=== PATIENT | female | born 1960 | race African-American/Black ===

== ENCOUNTER 2017-01-19 12:42 | Emergency (ER) | payer MEDICAID, SELFPAY ==
[~2017-01-19] VITALS: Ht 167.6 cm; Wt 61.2 kg
[~2017-01-19 12:42] MED LIST: [UNRECOGNIZED DRUG - REMARK]
[2017-01-19] MEDS ORDERED: Metoclopramide 10mg/2ml Inj IVP ONE (13:15)
[2017-01-19 14:02] LABS: BASOPHILS % (AUTO) 0.8 % (0.0-2.0); EOSINOPHILS % (AUTO) 0.8 % (0.0-3.0); LYMPHOCYTES % (AUTO) 19.6 % (20.0-45.0); MEAN CORPUSCULAR HEMOGLOBIN 30.3 PG (27.0-31.0); MEAN CORPUSCULAR HGB CONC 32.4 G/DL (32.0-36.0); MEAN CORPUSCULAR VOLUME 93 FL (80-99); MEAN PLATELET VOLUME 5.7 FL (6.5-10.1); MONOCYTES % (AUTO) 4.5 % (1.0-10.0); NEUTROPHILS % (AUTO) 74.4 % (45.0-75.0); PLATELET COUNT 407 K/UL (150-450); RED BLOOD COUNT 4.58 M/UL (4.20-5.40); RED CELL DISTRIBUTION WIDTH 11.3 % (11.6-14.8); WHITE BLOOD COUNT 9.2 K/UL (4.8-10.8)
[2017-01-19 14:11] LABS: APPEARANCE,URINE SLIGHTLY CLOUDY; KETONES,URINE 1+ (NEGATIVE); LEUKOCYTE ESTERASE ,URINE 2+ (NEGATIVE); NITRITE,URINE NEGATIVE (NEGATIVE); PH,URINE 6 (4.5-8.0); PROTEIN,URINE 1+ (NEGATIVE); UROBILINOGEN,URINE 1 MG/DL (0.0-1.0)
[2017-01-19 14:18] LABS: ALANINE AMINOTRANSFERASE 10 U/L (3-33); ALCOHOL < 10 mg/dL; AMYLASE 82 U/L (10-110); ANION GAP 18 (5-15); ASPARTATE AMINO TRANSFERASE 16 U/L (5-40); CALCIUM 9.7 mg/dL (8.6-10.2); CARBON DIOXIDE 23 mEQ/L (20-30); CHLORIDE 101 mEQ/L (98-107); CREATININE 0.7 mg/dL (0.5-0.9); GLOMERULAR FILTRATION RATE > 60 mL/min (>60); HEMOLYSIS 0; LIPASE 16 U/L (< 60); POTASSIUM 3.6 mEQ/L (3.4-4.9); SODIUM 142 mEQ/L (135-145); TOTAL PROTEIN 7.3 g/dL (6.6-8.7)
[2017-01-19 14:57] LABS: BACTERIA,URINE FEW /HPF; SQUAMOUS EPITHELIAL CELL,UR MODERATE /LPF (NONE/OCC); TRICHOMONAS,URINE FEW /HPF
[2017-01-19 15:20] VITALS: BP 167/89
[2017-01-19] MEDS ORDERED: AUGMENTIN 500-1 EACH ORAL (15:29)
[2017-01-19] MEDS ORDERED: METRONIDAZOLE500 MG ORAL (15:29)
[2017-01-19 15:58] VITALS: BP 159/86
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
--- NOTE | 2017-01-20 09:05 | Diagnostic Imaging Report ---
Indications: Cough Technique: Portable AP chest Findings: Comparison: None Cardiac silhouette remains normal in size. Pulmonary vasculature remains within normal limits. Inspiratory effort has decreased. Suggestion of focal opacity adjacent to lower left heart border, latter focally obscured. Lungs and pleura remain otherwise clear. IMPRESSION: Suggestion of new focal opacity is less likely to, most likely atelectasis if real. Early pneumonia not excludable. Upright PA and lateral chest radiographs with better inspiratory effort and optimal technique recommended for more complete evaluation.
== END 2017-01-19 16:00 | disposition home or self-care (01) ==
LOC: EDBD 12:42 → EMR 13:20
DX: L03.012 Cellulitis of left finger (principal); N76.0 Acute vaginitis; F19.10 Other psychoactive substance abuse, uncomplicated; R10.9 Unspecified abdominal pain
CPT/HCPCS: 36415; 71010; 80053; 80300; 80329; 81003; 82150; 83690; 85025; 96374; 96375; 99284; J2765

== ENCOUNTER 2017-03-12 13:58 | Observation (INO) | payer MEDICAID ==
[~2017-03-12] VITALS: Ht 154 cm; Wt 49.9 kg
[~2017-03-12 13:58] MED LIST changes: +AUGMENTIN 500-1 EACH ORAL; +METRONIDAZOLE500 MG ORAL
--- NOTE | 2017-03-12 14:16 | Emergency Room Report ---
History of Present Illness General Chief Complaint: Abdominal Pain Source: Patient, Medical Record Present Illness HPI Patient is a 56-year-old female presented after increased right-sided abdominal pain. Patient reportedly had been vomiting earlier in the day. Patient reports having prior history of cirrhosis. She also has prior history of substance abuse. Patient states that she had been vomiting and nonbloody material. She states that she had been sick for approximately one week. The patient was having increased pain to her right flank. Allergies: Coded Allergies: No Known Allergies (Unverified , 05/05/12) Patient History Past Medical History: see triage record Reviewed Nursing Documentation: PMH: Agreed, PSxH: Agreed Nursing Documentation-PMH Past Medical History: No History, Except For Hx Gastrointestinal Problems: Yes - cirrhosis Review of Systems All Other Systems: negative except mentioned in HPI Physical Exam Vital Signs Date Time Temp Pulse Resp B/P Pulse Ox O2 Delivery O2 Flow Rate FiO2 03/12/17 13:55 98.8 80 20 149/95 97 Room Air General Appearance: alert, GCS 15, Chronically Ill ENT: hearing grossly normal, normal pharynx, no angioedema Neck: full range of motion, supple, thyroid normal Respiratory: chest non-tender, normal breath sounds, no rhonchi Cardiovascular #1: normal peripheral pulses, regular rate, rhythm, no edema, no gallop, no JVD Gastrointestinal: normal bowel sounds, non tender, soft, no mass Genitourinary: CVA tenderness (R) Musculoskeletal: back normal, digits/nails normal Neurologic: alert, oriented x3, responsive Psychiatric: normal inspection, judgement/insight normal Skin: normal inspection, normal color Medical Decision Making Diagnostic Impression: Primary Impression: Drug abuse Additional Impressions: Abdominal pain Enteritis Syncope ER Course Patient presented for abdominal pain. Differential diagnoses included ischemic bowel, appendicitis, perforated viscus, abdominal aortic aneurysm, inferior myocardial infarction, viral gastroenteritis Because of complexity of patient's case laboratory testing and imaging studies were ordered. The patient was noted to have evidence of a right CVA tenderness.The patient was given IV antibiotics as patient appears have some evidence of urinary tract infection. EKG interpreted by me showed normal sinus rhythm with a rate of 80 there were lateral nonspecific ST changes consistent patient's prior drug use as well as an incomplete right lower branch block which is likely cocaine related. Laboratory testing was unremarkable. The patient's troponin was noted to be negative. CT abdomen pelvis read by radiology. Findings: Lack of enteric contrast, paucity of body fat limits assessment of the GI tract. The appendix is not definitely demonstrated, but there are no findings to suggest acute appendicitis. A surgical clip adjacent to the cecum may indicate prior appendectomy. Small bowel loops are fluid-filled, nondistended. There does appear to be small bowel wall enhancement proximally. No definite small bowel wall thickening. No free or loculated intraperitoneal air or fluid is evident. Liver, gallbladder, bile ducts, pancreas, spleen adrenals are unremarkable. The kidneys demonstrate bilateral subcentimeter low-attenuation lesions which are too small to characterize. Slightly prominent varicosities are seen in the bilateral adnexal regions. No pelvic mass or adenopathy. Atelectasis or scarring is seen at both lung bases, right greater than left. The bones are unremarkable except for degenerative changes of the lumbosacral junction. A urine drug screen was positive for cocaine. Urine showed evidence of slight infection Patient was discussed with Dr. Oliver from [facility] for possible transfer for HMO. The patient's HMO is unable to arrange transfer in a timely manner. The patient was cellulitis with us with Dr. Francis Bourne who agreed to inpatient observation due to abnormal EKG findings. Labs Test 03/12/17 14:00 White Blood Count 7.2 K/UL (4.8-10.8) Red Blood Count 4.80 M/UL (4.20-5.40) Hemoglobin 14.2 G/DL (12.0-16.0) Hematocrit 44.4 % (37.0-47.0) Mean Corpuscular Volume 92 FL (80-99) Mean Corpuscular Hemoglobin 29.6 PG (27.0-31.0) Mean Corpuscular Hemoglobin Concent 32.1 G/DL (32.0-36.0) Red Cell Distribution Width 11.7 % (11.6-14.8) Platelet Count 386 K/UL (150-450) Mean Platelet Volume 6.1 FL (6.5-10.1) Neutrophils (%) (Auto) 71.1 % (45.0-75.0) Lymphocytes (%) (Auto) 19.6 % (20.0-45.0) Monocytes (%) (Auto) 6.5 % (1.0-10.0) Eosinophils (%) (Auto) 1.7 % (0.0-3.0) Basophils (%) (Auto) 1.1 % (0.0-2.0) Prothrombin Time 10.6 SEC (9.30-11.50) Prothromb Time International Ratio 1.0 (0.9-1.1) Activated Partial Thromboplast Time 31 SEC (23-33) Sodium Level 140 mEQ/L (135-145) Potassium Level 3.3 mEQ/L (3.4-4.9) Chloride Level 100 mEQ/L (98-107) Carbon Dioxide Level 28 mEQ/L (20-30) Anion Gap 12 (5-15) Blood Urea Nitrogen 10 mg/dL (7-23) Creatinine 0.8 mg/dL (0.5-0.9) Estimat Glomerular Filtration Rate > 60 mL/min (>60) Glucose Level 134 mg/dL (74-106) Calcium Level 9.7 mg/dL (8.6-10.2) Total Bilirubin 0.3 mg/dL (0.0-1.2) Aspartate Amino Transf (AST/SGOT) 13 U/L (5-40) Alanine Aminotransferase (ALT/SGPT) 8 U/L (3-33) Alkaline Phosphatase 49 U/L (35-104) Troponin I < 0.30 ng/mL (<=0.30) Total Protein 7.5 g/dL (6.6-8.7) Albumin 4.2 g/dL (3.5-5.2) Globulin 3.3 g/dL Albumin/Globulin Ratio 1.2 (1.0-2.7) Lipase 18 U/L (< 60) Serum Alcohol < 10 mg/dL EKG Diagnostic Results Rate: normal Rhythm: NSR ST Segments: other - nonspecific st changes, incomplete RBBB Rhythm Strip Diag. Results EP Interpretation: yes Rhythm: NSR, no PVC's, no ectopy Last Vital Signs Date Time Temp Pulse Resp B/P Pulse Ox O2 Delivery O2 Flow Rate FiO2 03/12/17 13:55 98.8 80 20 149/95 97 Room Air Status: unchanged Disposition: PLACE IN OBSERVATION Condition: Serious Angus Patel Mar 12, 2017 14:16
[2017-03-12] MEDS ORDERED: Mylanta II UD 30ml ORAL ONE (14:30)
[2017-03-12] MEDS ORDERED: Lidocaine 2% Visc 15ml soln ORAL ONE (14:30)
[2017-03-12] MEDS ORDERED: Dicyclomine HCl 10mg/5ml oral soln ORAL ONE (14:30)
[2017-03-12 14:38] LABS: BASOPHILS % (AUTO) 1.1 % (0.0-2.0); EOSINOPHILS % (AUTO) 1.7 % (0.0-3.0); LYMPHOCYTES % (AUTO) 19.6 % (20.0-45.0); MEAN CORPUSCULAR HEMOGLOBIN 29.6 PG (27.0-31.0); MEAN CORPUSCULAR HGB CONC 32.1 G/DL (32.0-36.0); MEAN CORPUSCULAR VOLUME 92 FL (80-99); MEAN PLATELET VOLUME 6.1 FL (6.5-10.1); MONOCYTES % (AUTO) 6.5 % (1.0-10.0); NEUTROPHILS % (AUTO) 71.1 % (45.0-75.0); PLATELET COUNT 386 K/UL (150-450); RED CELL DISTRIBUTION WIDTH 11.7 % (11.6-14.8); WHITE BLOOD COUNT 7.2 K/UL (4.8-10.8)
[2017-03-12 14:44] LABS: PROTHROMBIN TIME 10.6 SEC (9.30-11.50)
[2017-03-12] MEDS ORDERED: cefTRIAXone 1 GM in NS 55 ML IVPB ONE (14:45)
[2017-03-12 14:49] LABS: TROPONIN I < 0.30 ng/mL (<=0.30)
[2017-03-12 14:52] LABS: ALANINE AMINOTRANSFERASE 8 U/L (3-33); ALBUMIN/GLOBULIN RATIO 1.2 (1.0-2.7); ALCOHOL < 10 mg/dL; ANION GAP 12 (5-15); ASPARTATE AMINO TRANSFERASE 13 U/L (5-40); CALCIUM 9.7 mg/dL (8.6-10.2); CARBON DIOXIDE 28 mEQ/L (20-30); CHLORIDE 100 mEQ/L (98-107); CREATININE 0.8 mg/dL (0.5-0.9); GLOMERULAR FILTRATION RATE > 60 mL/min (>60); HEMOLYSIS 5; LIPASE 18 U/L (< 60); POTASSIUM 3.3 mEQ/L (3.4-4.9); SODIUM 140 mEQ/L (135-145); TOTAL PROTEIN 7.5 g/dL (6.6-8.7)
[2017-03-12 15:43] LABS: APPEARANCE,URINE CLOUDY; KETONES,URINE NEGATIVE (NEGATIVE); LEUKOCYTE ESTERASE ,URINE 1+ (NEGATIVE); NITRITE,URINE NEGATIVE (NEGATIVE); PH,URINE 6 (4.5-8.0); PROTEIN,URINE 1+ (NEGATIVE); UROBILINOGEN,URINE 4 MG/DL (0.0-1.0)
[2017-03-12 15:49] LABS: BACTERIA,URINE OCCASIONAL /HPF; RBC,URINE 0-2 /HPF (0 - 2); SQUAMOUS EPITHELIAL CELL,UR FEW /LPF (NONE/OCC); WBC,URINE 0-2 /HPF (0 - 2)
--- NOTE | 2017-03-12 16:14 | Diagnostic Imaging Report ---
Clinical Indication: Abdominal pain Technique: No oral contrast utilized, per emergency room physician request IV administration nonionic contrast. Venous phase spiral acquisition obtained through the abdomen and pelvis. Multiplanar reconstructions were generated. Total dose length product 510 mGycm. CTDIvol(s) 10 mGy. Dose reduction achieved using automated exposure control Comparison: None Findings: Lack of enteric contrast, paucity of body fat limits assessment of the GI tract. The appendix is not definitely demonstrated, but there are no findings to suggest acute appendicitis. A surgical clip adjacent to the cecum may indicate prior appendectomy. Small bowel loops are fluid-filled, nondistended. There does appear to be small bowel wall enhancement proximally. No definite small bowel wall thickening. No free or loculated intraperitoneal air or fluid is evident. Liver, gallbladder, bile ducts, pancreas, spleen adrenals are unremarkable. The kidneys demonstrate bilateral subcentimeter low-attenuation lesions which are too small to characterize. Slightly prominent varicosities are seen in the bilateral adnexal regions. No pelvic mass or adenopathy. Atelectasis or scarring is seen at both lung bases, right greater than left. The bones are unremarkable except for degenerative changes of the lumbosacral junction. Impression: Limited assessment of the GI tract, due to lack of oral contrast administration Fluid-filled small bowel loops with some enhancement proximally, could indicate mild enteritis changes. Correlate with clinical findings No acute process otherwise Bilateral adnexal varicosities, could indicate ovarian venous insufficiency with resultant pelvic congestion syndrome. Correlate with clinical history Bilateral subcentimeter low-attenuation renal lesions, too small to characterize, most likely benign simple cysts. No further followup necessary Other findings as noted, including bilateral basilar pulmonary atelectasis or scarring, degenerative lumbosacral spondylosis The CT scanner at [facility] is accredited by the [place] and the scans are performed using protocols designed to limit radiation exposure to as low as reasonably achievable to attain images of sufficient resolution adequate for diagnostic evaluation.
[2017-03-12 16:17] VITALS: BP 177/78
[2017-03-12] MEDS ORDERED: NKM (16:25)
[2017-03-12] MEDS ORDERED: Famotidine 20 MG/ 2ML VIAL IVP ONE (17:15)
[2017-03-12 18:25] VITALS: BP 166/92
[2017-03-12 19:35] VITALS: BP 155/94
[2017-03-12 21:45] VITALS: BP 148/98
[2017-03-12] MEDS ORDERED: Norco 5mg/325mg tab ORAL PRN (23:30)
[2017-03-13] VITALS: BP 221/104
[2017-03-13] MEDS ORDERED: cloNIDine 0.2mg Tab ONE (03:29)
[2017-03-13 04:00] VITALS: BP 208/118
--- NOTE | 2017-03-13 08:30 | History and Physical Report ---
DATE OF ADMISSION: 03/12/2017 HISTORY OF PRESENT ILLNESS: This is a 56-year-old female, who came to the hospital with abdominal pain. She also reports having emesis earlier yesterday. The patient reports a history of liver cirrhosis. Etiology unknown. She also reports a history of substance abuse. The patient states that she has been unwell for several days and reports pain in the mid epigastric and chest area as well. Her urine toxicology returned back positive for cocaine as well. PAST MEDICAL HISTORY: Liver cirrhosis and substance abuse. MEDICATIONS: Home medications the patient admits that she is on home meds at this point in time. REVIEW OF SYSTEMS: She denies any headaches, hematemesis, melena, hematochezia, night sweats, or weight loss. PREVIOUS SURGERY: None. PHYSICAL EXAMINATION: GENERAL: Reveals a 56-year-old female. VITAL SIGNS: Blood pressure 140/90, heart rate 84, and respiratory rate 18. She is afebrile. HEENT: Unremarkable. CHEST: Shows clear, but somewhat larger with normal heart sounds. ABDOMEN: Soft. EXTREMITIES: There is no edema. NEUROLOGIC: Nonfocal. LABORATORY DATA: Lab testing shows normal. Chemistry potassium notable for 3.3, glucose 134. Troponins negative. Toxicology positive for cocaine. Urinalysis is negative. Hematology negative. IMAGING STUDIES: The patient underwent abdominal pelvic CT, which was essentially negative for any acute pathology. Liver was normally noted. The appendix was not demonstrated. It is a noncontrast CT. IMPRESSION: 1. Substance abuse. 2. Abdominal pain. 3. Liver cirrhosis. DISCUSSION: We will admit to the hospital. The patient is noted to be hypertensive. We will order clonidine. We will provide Crum for pain control. Anticipate discharge/transfer to [facility] once bed available. Francis Bourne M.D. DR: TUSHAR/MARY JOB#: [id number] CC:
--- NOTE | 2017-03-14 17:12 | Cardiology Report ---
APPROVED REPORT EKG Measurement Heart [id number] Normal sinus rhythm Possible Left atrial enlargement Incomplete right bundle branch block Nonspecific ST and T wave abnormality Abnormal ECG
== END 2017-03-13 04:45 | disposition short-term general hospital (02) ==
LOC: EDBD 13:58 → EMR 14:30 → 2E 20:05 → UNDOADMOB 20:05 → EDBEDREQ 20:16 → 2E 23:54 → UNDODISOB 03-13 04:45
DX: R10.9 Unspecified abdominal pain (principal); N39.0 Urinary tract infection, site not specified; K74.60 Unspecified cirrhosis of liver; F14.129 Cocaine abuse with intoxication, unspecified; J98.4 Other disorders of lung; R94.31 Abnormal electrocardiogram [ECG] [EKG]; I45.10 Unspecified right bundle-branch block; R03.0 Elevated blood-pressure reading, without diagnosis of hypertension
CPT/HCPCS: 36415; 71010; 74177; 80053; 80300; 80329; 81003; 83690; 84484; 85025; 85610; 85730; 87081; 93005; 99284; G0378; J0696; J2405; J7040; Q9967; S0028; J8499

== ENCOUNTER 2017-03-26 10:15 | Emergency (ER) | payer MEDICAID ==
[~2017-03-26] VITALS: Ht 162.6 cm; Wt 45.4 kg
[~2017-03-26 10:15] MED LIST changes: +NKM
[2017-03-26 12:22] LABS: APPEARANCE,URINE CLEAR; KETONES,URINE NEGATIVE (NEGATIVE); LEUKOCYTE ESTERASE ,URINE NEGATIVE (NEGATIVE); NITRITE,URINE NEGATIVE (NEGATIVE); PH,URINE 6 (4.5-8.0); PROTEIN,URINE NEGATIVE (NEGATIVE); UROBILINOGEN,URINE 1 MG/DL (0.0-1.0)
--- NOTE | 2017-03-26 13:50 | Emergency Room Report ---
History of Present Illness General Chief Complaint: Back Pain-No Injury Source: Patient, EMS Present Illness HPI Patient brought by EMS. Was in alley with sig other. They were called because patient complained of increased back pain. Chronic problem and told she has a bump in her back several years ago at another hospital. Patient will not answer questions. Most of history from EMS. Also review of recent admission 03/[address] at that time "negative" Transfer to [facility]. Allergies: Coded Allergies: No Known Allergies (Unverified , 05/05/12) Patient History Limited by: medical condition Past Medical History: old chart reviewed Social History: Reports: drug use - see tox Social History Narrative with sig other Now: No Reviewed Nursing Documentation: PMH: Agreed, PSxH: Agreed Nursing Documentation-PMH Hx Hypertension: Yes - substance abuse and psych Hx Cancer: No Hx Gastrointestinal Problems: Yes - cirrhosis Hx Neurological Problems: No Review of Systems All Other Systems: limited Physical Exam Vital Signs Date Time Temp Pulse Resp B/P (MAP) Pulse Ox O2 Delivery O2 Flow Rate FiO2 03/26/17 10:08 98.1 86 20 176/86 99 Room Air Sp02 EP Interpretation: reviewed, normal General Appearance: no apparent distress, thin, other - sleepy Head: normocephalic Eyes: bilateral eye PERRL, bilateral eye Scleral Injection ENT: moist mucus membranes Neck: full range of motion Respiratory: lungs clear, normal breath sounds Cardiovascular #1: regular rate, rhythm Cardiovascular #2: 2+ radial (R) Gastrointestinal: normal inspection, normal bowel sounds, non tender, no mass, non-distended Musculoskeletal: gait/station normal, normal range of motion, tender - paraspinous, no step off, no bony tenderness. Sits and stands without difficulty Neurologic: alert, motor strength/tone normal, DTRs symmetric, sensory intact, oriented - not answer all questions Psychiatric: other - sleepy and uncooperative Reflexes: 2+ knee (R), 2+ knee (L), 1+ ankle (R), 1+ ankle (L) Skin: normal inspection, warm/dry Medical Decision Making Diagnostic Impression: Primary Impression: Back pain Qualified Codes: M54.5 - Low back pain Additional Impression: Cocaine abuse ER Course Pt presents with back pain. Poor historian, but ambulatory and sleeping DDx: strain, spasm, DJD amongst others. Recent hospitalization for flank pain with neg CT. Will eval with UA. If demonstrating pain will give analgesics here. UA clear but + cocaine. Patient sleeping. Patient without complaints. Requests to leave ED. Patient stable for outpatient observation and treatment. Laboratory Tests Test 03/26/17 12:08 Urine Color Yellow Urine Appearance Clear Urine pH 6 (4.5-8.0) Urine Specific [place] 1.020 (1.005-1.035) Urine Protein Negative (NEGATIVE) Urine Glucose (UA) Negative (NEGATIVE) Urine Ketones Negative (NEGATIVE) Urine Occult Blood Negative (NEGATIVE) Urine Nitrite Negative (NEGATIVE) Urine Bilirubin Negative (NEGATIVE) Urine Urobilinogen 1 MG/DL (0.0-1.0) H Urine Leukocyte Esterase Negative (NEGATIVE) Urine Opiates Screen Negative (NEGATIVE) Urine Barbiturates Screen Negative (NEGATIVE) Phencyclidine (PCP) Screen Negative (NEGATIVE) Urine Amphetamines Screen Negative (NEGATIVE) Urine Benzodiazepines Screen Negative (NEGATIVE) Urine Cocaine Screen Positive (NEGATIVE) H Urine Marijuana (THC) Screen Negative (NEGATIVE) Last Vital Signs Date Time Temp Pulse Resp B/P (MAP) Pulse Ox O2 Delivery O2 Flow Rate FiO2 03/26/17 14:33 76 16 158/84 99 Room Air 03/26/17 14:33 99.1 Status: improved Disposition: HOME, SELF-CARE Condition: Improved Scripts Ibuprofen* (MOTRIN*) 600 Mg Tablet 600 MG ORAL Q6H Y for For Pain, #16 TAB Prov: Fredy Bernabe M.D. 03/26/17 Referrals: [facility],REFERRING (PCP) Fredy Bernabe M.D. Mar 26, 2017 13:50
[2017-03-26] MEDS ORDERED: IBUPROFEN600 MG ORAL (13:58)
[2017-03-26 14:33] VITALS: BP 158/84
== END 2017-03-26 14:33 | disposition home or self-care (01) ==
LOC: EDBD 10:15 → EMR 13:12
DX: M54.9 Dorsalgia, unspecified (principal); F14.10 Cocaine abuse, uncomplicated; I10 Essential (primary) hypertension; K74.60 Unspecified cirrhosis of liver
CPT/HCPCS: 80300; 81003; 99283

== ENCOUNTER 2017-04-07 19:08 | Emergency (ER) | payer MEDICAID ==
[~2017-04-07] VITALS: Ht 157.5 cm; Wt 54.4 kg
[~2017-04-07 19:08] MED LIST changes: +IBUPROFEN600 MG ORAL
[2017-04-07 19:30] VITALS: BP 187/96
[2017-04-07] MEDS ORDERED: Dexamethasone 4mg/ml vial IVP ONE ×2 (20:00→22:00)
[2017-04-07] MEDS ORDERED: levETIRAcetam 1,000mg/NS100ml 100 ML IVPB ONE (20:00)
[2017-04-07 20:30] VITALS: BP 189/91
[2017-04-07] MEDS ORDERED: Cefepime HCl 2 GM in D5W 110 ML IVPB ONE (20:30)
[2017-04-07] MEDS ORDERED: Vancomycin 1 GM in D5W 275 ML IVPB ONE (20:30)
--- NOTE | 2017-04-07 20:32 | Emergency Room Report ---
History of Present Illness General Chief Complaint: Altered Level of Consciousness Source: Patient, EMS Present Illness HPI Patient is a 56-year-old female brought in by EMS level consciousness. Patient was noted to have prior history drug abuse per old records. Patient was noted to have increased difficulty with speech. Patient denies recent alcohol use. Allergies: Coded Allergies: No Known Allergies (Unverified , 05/05/12) Patient History Reviewed Nursing Documentation: PMH: Agreed, PSxH: Agreed Nursing Documentation-PMH Hx Hypertension: Yes Hx Cancer: No Hx Gastrointestinal Problems: Yes - cirrhosis Hx Neurological Problems: No Review of Systems All Other Systems: negative except mentioned in HPI Physical Exam Vital Signs Date Time Temp Pulse Resp B/P (MAP) Pulse Ox O2 Delivery O2 Flow Rate FiO2 04/07/17 19:09 98.6 68 16 187/96 95 Room Air General Appearance: alert, mild distress, Chronically Ill ENT: hearing grossly normal, other - slurred speech Neck: limited range of motion Respiratory: lungs clear, normal breath sounds Cardiovascular #1: normal peripheral pulses, regular rate, rhythm Gastrointestinal: normal bowel sounds, non tender, soft Musculoskeletal: back normal Neurologic: normal inspection, alert, responsive, motor weakness Psychiatric: other - limited by metal stat Skin: normal inspection, normal color, no rash Procedures Critical Care Time Critical Care Time Patient had a critical medical condition which untreated could potentially result in life or limb threatening injury. Total critical care time excluding procedures approximately 45 minutes. Medical Decision Making Diagnostic Impression: Primary Impression: Altered level of consciousness Additional Impression: Intracranial mass ER Course Patient presented for altered mental status.Differential diagnosis included but was not limited to ischemic stroke, subarachnoid hemorrhage, hypoglycemia, spinal cord injury, neurodegenerative disorder, urinary tract infection, hypoxemia.Because of complexity of patient's case laboratory testing and imaging studies were ordered.Patient was given IV Decadron as well as IV medications for blood pressure. Patient was discussed with Dr. Jensen from [facility] for transfer for h higher level of care. Patient will be transferred via [facility] ambulance. Labs Test 04/07/17 20:10 White Blood Count 8.9 K/UL (4.8-10.8) Red Blood Count 4.02 M/UL (4.20-5.40) Hemoglobin 12.3 G/DL (12.0-16.0) Hematocrit 36.7 % (37.0-47.0) Mean Corpuscular Volume 91 FL (80-99) Mean Corpuscular Hemoglobin 30.6 PG (27.0-31.0) Mean Corpuscular Hemoglobin Concent 33.6 G/DL (32.0-36.0) Red Cell Distribution Width 11.4 % (11.6-14.8) Platelet Count 371 K/UL (150-450) Mean Platelet Volume 5.8 FL (6.5-10.1) Neutrophils (%) (Auto) 74.8 % (45.0-75.0) Lymphocytes (%) (Auto) 15.6 % (20.0-45.0) Monocytes (%) (Auto) 8.2 % (1.0-10.0) Eosinophils (%) (Auto) 0.5 % (0.0-3.0) Basophils (%) (Auto) 0.9 % (0.0-2.0) Prothrombin Time 11.4 SEC (9.30-11.50) Prothromb Time International Ratio 1.1 (0.9-1.1) Activated Partial Thromboplast Time 29 SEC (23-33) Sodium Level 140 mEQ/L (135-145) Potassium Level 2.8 mEQ/L (3.4-4.9) Chloride Level 98 mEQ/L (98-107) Carbon Dioxide Level 28 mEQ/L (20-30) Anion Gap 14 (5-15) Blood Urea Nitrogen 7 mg/dL (7-23) Creatinine 0.7 mg/dL (0.5-0.9) Estimat Glomerular Filtration Rate > 60 mL/min (>60) Glucose Level 109 mg/dL (74-106) Calcium Level 9.4 mg/dL (8.6-10.2) Total Bilirubin 0.3 mg/dL (0.0-1.2) Aspartate Amino Transf (AST/SGOT) 13 U/L (5-40) Alanine Aminotransferase (ALT/SGPT) 8 U/L (3-33) Alkaline Phosphatase 31 U/L (35-104) Total Protein 7.1 g/dL (6.6-8.7) Albumin 3.5 g/dL (3.5-5.2) Globulin 3.6 g/dL Albumin/Globulin Ratio 0.9 (1.0-2.7) Salicylates Level < 1 mg/dL (10-30) Acetaminophen Level < 10 ug/mL (10-30) Serum Alcohol < 10 mg/dL EKG Diagnostic Results Rate: normal - 71 Rhythm: NSR - incomplete RBBB ST Segments: no acute changes Rhythm Strip Diag. Results EP Interpretation: yes Rhythm: NSR, no PVC's, no ectopy Last Vital Signs Date Time Temp Pulse Resp B/P (MAP) Pulse Ox O2 Delivery O2 Flow Rate FiO2 04/07/17 19:09 98.6 68 16 187/96 95 Room Air Status: unchanged Disposition: ADMITTED INPATIENT Condition: Serious Angus Patel Apr 07, 2017 20:32
[2017-04-07 20:36] LABS: BASOPHILS % (AUTO) 0.9 % (0.0-2.0); EOSINOPHILS % (AUTO) 0.5 % (0.0-3.0); LYMPHOCYTES % (AUTO) 15.6 % (20.0-45.0); MEAN CORPUSCULAR HEMOGLOBIN 30.6 PG (27.0-31.0); MEAN CORPUSCULAR HGB CONC 33.6 G/DL (32.0-36.0); MEAN CORPUSCULAR VOLUME 91 FL (80-99); MEAN PLATELET VOLUME 5.8 FL (6.5-10.1); MONOCYTES % (AUTO) 8.2 % (1.0-10.0); NEUTROPHILS % (AUTO) 74.8 % (45.0-75.0); PLATELET COUNT 371 K/UL (150-450); RED BLOOD COUNT 4.02 M/UL (4.20-5.40); RED CELL DISTRIBUTION WIDTH 11.4 % (11.6-14.8); WHITE BLOOD COUNT 8.9 K/UL (4.8-10.8)
[2017-04-07 20:47] LABS: INR 1.1 (0.9-1.1); PROTHROMBIN TIME 11.4 SEC (9.30-11.50)
[2017-04-07 21:04] LABS: ACETAMINOPHEN < 10 ug/mL (10-30); ALANINE AMINOTRANSFERASE 8 U/L (3-33); ALBUMIN/GLOBULIN RATIO 0.9 (1.0-2.7); ALCOHOL < 10 mg/dL; ANION GAP 14 (5-15); ASPARTATE AMINO TRANSFERASE 13 U/L (5-40); CALCIUM 9.4 mg/dL (8.6-10.2); CARBON DIOXIDE 28 mEQ/L (20-30); CHLORIDE 98 mEQ/L (98-107); CREATININE 0.7 mg/dL (0.5-0.9); GLOMERULAR FILTRATION RATE > 60 mL/min (>60); HEMOLYSIS 1; POTASSIUM 2.8 mEQ/L (3.4-4.9); SODIUM 140 mEQ/L (135-145); TOTAL PROTEIN 7.1 g/dL (6.6-8.7)
[2017-04-07 21:13] VITALS: BP 168/80
[2017-04-07] MEDS ORDERED: Cefepime 2gm ONE (21:26)
[2017-04-07] MEDS ORDERED: Vancomycin 1gm inj IVPB ONE (21:41)
[2017-04-07 22:10] VITALS: BP 152/60
--- NOTE | 2017-04-08 10:29 | Diagnostic Imaging Report ---
Indication: Mental status Technique: Contiguous 5 mm thick transaxial imaging of the head obtained in a Siemens Sensation [address] scanner. Soft tissue and bone windows generated. Total Dose length Product (DLP): [address] Dose Index Volume (CTDIvol): 70.38, 0.15 mGy Comparison: 05/05/12 Findings: There is vasogenic edema demonstrated within the left temporal lobe with involvement of portions of the left frontal and parietal lobe as well. This is probably on the basis of a mass measuring about 2 cm noted centrally within the superior part of the left temporal lobe/parietal region. There is mass effect on the left lateral ventricle which is moderately compressed. There is mild left to right midline shift of approximately 7 mm. Further evaluation with MRI with gadolinium is suggested. The basal cisterns appear intact. There is no acute bleed. Impression: Mass effect within the brain in the left temporal/parietal region with associated mass effect and edema, 7 mm subfalcine herniation left to right.. Findings concerning for malignant neoplasm. Further evaluation with gadolinium enhanced MRI is recommended. The CT scanner at [facility] is accredited by the [employer] and the scans are performed using dose optimization techniques as appropriate to a performed exam including Automatic Exposure control.
--- NOTE | 2017-04-11 16:02 | Cardiology Report ---
APPROVED REPORT EKG Measurement Heart [id number] Normal sinus rhythm with sinus arrhythmia Possible Left atrial enlargement Incomplete right bundle branch block Prolonged QT Abnormal ECG
== END 2017-04-07 22:10 | disposition short-term general hospital (02) ==
LOC: EDBD 19:08 → EMR 21:14
DX: R41.82 Altered mental status, unspecified (principal); R90.0 Intracranial space-occupying lesion found on diagnostic imaging of central nervous system; I10 Essential (primary) hypertension; K74.60 Unspecified cirrhosis of liver; I45.10 Unspecified right bundle-branch block
CPT/HCPCS: 36415; 70450; 80053; 80329; 85025; 85610; 85730; 93005; 96365; 96375; 99291; J0360; J1100; J1953; J3370